=== PATIENT | male | born 1985 | race Caucasian/White ===

== ENCOUNTER 2017-10-17 16:38 | Emergency (ER) | payer BC ==
[2017-10-17] MEDS ORDERED: Sodium Chloride 0.9% 10 ML Syringe FLUSH PRN (17:42)
[2017-10-17] MEDS ORDERED: Sodium Chloride 0.9% 1,000 ML IV STA (17:42)
[2017-10-17] MEDS ORDERED: Ondansetron 4 MG/2 ML SDV IVPUSH ONE (17:42)
[2017-10-17] MEDS ORDERED: Sodium Chloride 0.9% 1,000 ML IV SCH (19:45)
--- NOTE | 2017-10-17 19:56 | EDM.PDOC ---
ED HPI GENERAL MEDICAL PROBLEM - General Chief Complaint: General Stated Complaint: FLU LIKE SYMPTOMS Time Seen by Provider: 10/17/17 17:28 Source of Information: Reports: Patient History Limitations: Reports: No Limitations - History of Present Illness INITIAL COMMENTS - FREE TEXT/NARRATIVE: The patient presents with body aches and generalized weakness. He has some nausea and his stomach is upset. He does not think he had a fever but maybe some chills. He is able to eat. He has no chest pain, sore throat, ear pain, cough, abdominal pain or dysuria. He has no medical problems. This has been going on for 5 days. Onset: Gradual Duration: Day(s): (5) Location: Reports: Generalized Quality: Reports: Ache Severity: Moderate Improves with: Reports: None Worsens with: Reports: None Associated Symptoms: Reports: Fever/Chills, Nausea/Vomiting. Denies: Chest Pain , Cough, Headaches, Shortness of Breath Generalized Pain Score (Numeric/FACES): 0 - Related Data Allergies Allergy/AdvReac Type Severity Reaction Status Date / Time No Known Allergies Allergy Verified 10/17/17 16:59 Home Meds: Home Meds Ondansetron [Zofran ODT] 4 mg PO Q6H PRN #20 tab.dis 10/17/17 [Rx] Past Medical History - Past Surgical History HEENT Surgical History: Reports: Eye Surgery GI Surgical History: Reports: Appendectomy Social & Family History - Tobacco Use Smoking Status *Q: Never Smoker - Caffeine Use Caffeine Use: Reports: Coffee - Recreational Drug Use Recreational Drug Use: No ED ROS GENERAL - Review of Systems Review Of Systems: See Below Constitutional: Reports: Chills, Malaise, Weakness, Fatigue. Denies: Fever HEENT: Reports: No Symptoms Respiratory: Reports: No Symptoms Cardiovascular: Reports: No Symptoms Endocrine: Reports: No Symptoms GI/Abdominal: Reports: Diarrhea, Nausea. Denies: Abdominal Pain, Vomiting : Reports: No Symptoms Musculoskeletal: Reports: No Symptoms ED EXAM, GENERAL - Physical Exam Exam: See Below Exam Limited By: No Limitations General Appearance: Alert, No Apparent Distress Ears: Normal External Exam Nose: Normal Inspection Head: Atraumatic, Normocephalic Neck: Normal Inspection Respiratory/Chest: No Respiratory Distress, Lungs Clear, Normal Breath Sounds Cardiovascular: Regular Rate, Rhythm, No Edema, No Murmur GI/Abdominal: Soft, Non-Tender, No Organomegaly, No Mass Back Exam: Normal Inspection Extremities: Normal Inspection Neurological: Alert, Oriented, No Motor/Sensory Deficits Course - Vital Signs Last Recorded V/S: Last Vital Signs Temp 98.5 F 10/17/17 16:59 Pulse 87 10/17/17 16:59 Resp 16 10/17/17 16:59 BP 132/73 10/17/17 16:59 Pulse Ox 100 10/17/17 16:59 - Orders/Labs/Meds Orders: Active Orders 24 hr Category Date Time Status Peripheral IV Care [RC] . DIRECTED Care 10/17/17 17:43 Active Abdomen Ltd [US] Stat Exams 10/17/17 19:40 Taken Sodium Chloride 0.9% [Normal Saline] 1,000 ml Med 10/17/17 19:45 Active IV ASDIRECTED Sodium Chloride 0.9% [Saline Flush] Med 10/17/17 17:42 Active 10 ml FLUSH ASDIRECTED PRN ED Antiemetic Medication Reflex [OM.PC] Stat Oth 10/17/17 17:43 Ordered Peripheral IV Insertion Adult [OM.PC] Stat Oth 10/17/17 17:42 Ordered Medication Orders Sodium Chloride (Normal Saline) 1,000 mls @ 150 mls/hr IV ASDIRECTED FRANSISCO Last Admin: 10/17/17 19:49 Dose: 150 mls/hr Sodium Chloride (Saline Flush) 10 ml FLUSH ASDIRECTED PRN PRN Reason: Keep Vein Open Last Admin: 10/17/17 18:26 Dose: 10 ml Labs: Laboratory Tests 10/17/17 10/17/17 10/17/17 Range/Units 18:15 18:15 18:15 WBC 5.92 (4.23-9.07) K/mm3 RBC 5.17 (4.63-6.08) M/mm3 Hgb 16.1 (13.7-17.5) gm/L Hct 46.2 (40.1-51.0) % MCV 89.4 (79.0-92.2) fl MCH 31.1 (25.7-32.2) pg MCHC 34.8 (32.2-35.5) g/dl RDW Std Deviation 41.5 (35.1-43.9) fL Plt Count 169 (163-337) K/mm3 MPV 9.1 L (9.4-12.3) fl Neut % (Auto) 59.1 (34.0-67.9) % Lymph % (Auto) 20.1 L (21.8-53.1) % [place] % (Auto) 17.9 H (5.3-12.2) % Eos % (Auto) 2.4 (0.8-7.0) Baso % (Auto) 0.3 (0.1-1.2) % Neut # (Auto) 3.50 (1.78-5.38) K/mm3 Lymph # (Auto) 1.19 L (1.32-3.57) K/mm3 [place] # (Auto) 1.06 H (0.30-0.82) K/mm3 Eos # (Auto) 0.14 (0.04-0.54) K/mm3 Baso # (Auto) 0.02 (0.01-0.08) K/mm3 Manual Slide Review Normal smear Sodium 138 (136-145) mEq/L Potassium 3.9 (3.5-5.1) mEq/L Chloride 104 (98-107) mEq/L Carbon Dioxide 30 (21-32) mEq/L Anion Gap 7.9 (5-15) BUN 11 (7-18) mg/dL Creatinine 1.0 (0.7-1.3) mg/dL Est Cr Clr Drug Dosing 111.90 mL/min Estimated GFR (MDRD) > 60 (>60) mL/min BUN/Creatinine Ratio 11.0 L (14-18) Glucose 87 (74-106) mg/dL Calcium 9.0 (8.5-10.1) mg/dL Total Bilirubin 0.9 (0.2-1.0) mg/dL AST 36 (15-37) U/L ALT 61 (16-63) U/L Alkaline Phosphatase 65 (46-116) U/L Creatine Kinase 52 (39-308) U/L Total Protein 7.5 (6.4-8.2) g/dl Albumin 3.5 (3.4-5.0) g/dl Globulin 4.0 gm/dL Albumin/Globulin Ratio 0.9 L (1-2) Lipase 494 H (73-393) U/L Monoscreen Negative (NEGATIVE) Meds: Medications Generic Name Dose Route Start Last Admin Trade Name Birgit PRN Reason Stop Dose Admin Sodium Chloride 1,000 mls @ 150 mls/hr 10/17/17 19:45 10/17/17 19:49 Normal Saline IV 150 mls/hr ASDIRECTED FRANSISCO Administration Sodium Chloride 10 ml 10/17/17 17:42 10/17/17 18:26 Saline Flush FLUSH 10 ml ASDIRECTED PRN Administration Keep Vein Open Discontinued Medications Generic Name Dose Route Start Last Admin Trade Name Freq PRN Reason Stop Dose Admin Sodium Chloride 1,000 mls @ 1,000 mls/hr 10/17/17 17:42 10/17/17 18:25 Normal Saline IV 10/17/17 18:41 1,000 mls/hr .BOLUS STA Administration Ondansetron HCl 4 mg 10/17/17 17:42 10/17/17 18:25 Zofran IVPUSH 10/17/17 17:43 4 mg ONETIME ONE Administration - Re-Assessments/Exams Free Text/Narrative Re-Assessment/Exam: 10/17/17 19:53 I ordered an IV NS 1L bolus, zofran 4mg IV and labs. His CBC looks good. His CMP looks good. His influenza and mono were negative. His lipase was elevated at 494. He says he feels better. When I examined him again he had pain upon palpation to the RUQ. I have ordered an US of his gallbladder. He says he drinks socially and last had a drink Sunday night. It was just one shot. 10/17/17 21:08 The US showed some sludge in his gallbladder. There was no stones and the ducts looked fine. He did have some pain with the US. He has pancreatitis. I will discharge him on some zofran. He may need to see a general surgeon if he has more trouble with his gallbladder. Departure - Departure Time of Disposition: 21:10 Disposition: Home, Self-Care 01 Condition: Good Clinical Impression: Biliary colic, Gallbladder sludge Pancreatitis Qualifiers: Chronicity: acute Pancreatitis type: other Acute pancreatitis complication: no infection or necrosis Qualified Code(s): K85.80 - Other acute pancreatitis without necrosis or infection - Discharge Information Prescriptions: Ondansetron [Zofran ODT] 4 mg PO Q6H PRN #20 tab.dis PRN Reason: Nausea/Vomiting Referrals: PCP,Not In Area [Primary Care Provider] - Latoya Barcenas PA [Physician [employer]] - 1 Week Forms: ED Department Discharge Additional Instructions: Take the zofran every 6 hours as needed for nausea and vomiting. Drink plenty of fluids. Start of with clear liquids for a day and advance your diet as tolerated. Please return if you are worse such as more pain, nausea and vomiting. Follow up with Latoya Barcenas here or your doctor back in [place]. Avoid fried fatty food. That may make your gallbladder hurt. If it becomes more of a problem. Follow up with a general surgeon back home to see about getting your gallbladder out. - My Orders Last 24 Hours: My Active Orders 10/17/17 17:42 Sodium Chloride 0.9% [Saline Flush] 10 ml FLUSH ASDIRECTED PRN Peripheral IV Insertion Adult [OM.PC] Stat 10/17/17 17:43 Peripheral IV Care [RC] . DIRECTED ED Antiemetic Medication Reflex [OM.PC] Stat 10/17/17 19:40 Abdomen Ltd [US] Stat 10/17/17 19:45 Sodium Chloride 0.9% [Normal Saline] 1,000 ml IV ASDIRECTED - Assessment/Plan Last 24 Hours: My Active Orders 10/17/17 17:42 Sodium Chloride 0.9% [Saline Flush] 10 ml FLUSH ASDIRECTED PRN Peripheral IV Insertion Adult [OM.PC] Stat 10/17/17 17:43 Peripheral IV Care [RC] . DIRECTED ED Antiemetic Medication Reflex [OM.PC] Stat 10/17/17 19:40 Abdomen Ltd [US] Stat 10/17/17 19:45 Sodium Chloride 0.9% [Normal Saline] 1,000 ml IV ASDIRECTED
--- NOTE | 2017-10-17 21:14 | US ---
Limited abdominal ultrasound: Multiple real-time images of the upper right abdomen were obtained. Comparison: No previous abdominal imaging. Findings: Liver shows no focal abnormality. Sludge is identified within the gallbladder. No shadowing gallstones are seen. No gallbladder wall thickening or biliary duct dilatation is seen. Right kidney shows no hydronephrosis or mass and has a length of 10.9 cm. Visualised portions of the pancreas are unremarkable. Impression: 1. Sludge within the gallbladder. Gallbladder shows no shadowing gallstones or gallbladder wall thickening. No biliary duct dilatation is seen. 2. Other portions of the right upper quadrant abdominal ultrasound are unremarkable. Diagnostic code #2
== END 2017-10-17 21:24 | disposition home or self-care (01) ==
LOC: JD.ED 16:38
DX: K80.50 Calculus of bile duct without cholangitis or cholecystitis without obstruction (principal); K83.9 Disease of biliary tract, unspecified; K85.80 Other acute pancreatitis without necrosis or infection
CPT/HCPCS: 36415; 76705; 80053; 82550; 83690; 85025; 86308; 87804; 96361; 96374; 99284; J2405; J7040; J7050

== ENCOUNTER 2017-11-04 22:43 | Observation (INO) | payer BC ==
[2017-11-04] MEDS ORDERED: Ondansetron 4 MG/2 ML SDV IVPUSH ONE (23:04)
[2017-11-04] MEDS ORDERED: Sodium Chloride 0.9% 1,000 ML IV STA (23:04)
[2017-11-04] MEDS ORDERED: Sodium Chloride 0.9% 10 ML Syringe FLUSH PRN (23:04)
[2017-11-04] MEDS ORDERED: HYDROmorphone 1 MG/ML Syringe IVPUSH ONE (23:05)
[2017-11-05] MEDS ORDERED: HYDROmorphone 0.5 MG/0.5 ML Syringe IVPUSH ONE (00:43)
--- NOTE | 2017-11-05 01:58 | EDM.PDOC ---
ED HPI GENERAL MEDICAL PROBLEM - General Chief Complaint: Abdominal Pain Stated Complaint: right side pain Time Seen by Provider: 11/04/17 22:50 Source of Information: Reports: Patient History Limitations: Reports: No Limitations - History of Present Illness INITIAL COMMENTS - FREE TEXT/NARRATIVE: The patient presents with RUQ abdominal pain. He was seen here on the 17 of October and found to have slug in his gallbladder. He went back home and saw his doctor and he was going to set him up with a surgeon when he got back home again. [place] came [place] work [place] and multiple times he has had RUQ abdominal pain. He had a severe on yesterday morning at [facility]. He came back here tonight and had some tuna and crackers and it flared up again. He has nausea but no vomiting. He has no fever or chills. He denies chest pain or shortness or breath. Onset: Sudden Duration: Hour(s): Location: Reports: Abdomen (RUQ) Quality: Reports: Sharp Severity: Moderate Improves with: Reports: None Worsens with: Reports: None Associated Symptoms: Reports: Nausea/Vomiting. Denies: Confusion, Chest Pain, Cough, Fever/Chills, Shortness of Breath Right Upper Abdomen Pain Score (Numeric/FACES): 8 - Related Data Allergies Allergy/AdvReac Type Severity Reaction Status Date / Time No Known Allergies Allergy Verified 10/17/17 16:59 Home Meds: Home Meds traMADol [Ultram] 50 mg PO Q6H PRN 11/04/17 [History] Past Medical History - Past Surgical History HEENT Surgical History: Reports: Eye Surgery GI Surgical History: Reports: Appendectomy Social & Family History - Tobacco Use Smoking Status *Q: Never Smoker - Caffeine Use Caffeine Use: Reports: Coffee - Recreational Drug Use Recreational Drug Use: No ED ROS GENERAL - Review of Systems Review Of Systems: See Below Constitutional: Reports: No Symptoms HEENT: Reports: No Symptoms Respiratory: Reports: No Symptoms Cardiovascular: Reports: No Symptoms Endocrine: Reports: No Symptoms GI/Abdominal: Reports: Abdominal Pain, Nausea. Denies: Vomiting : Reports: No Symptoms Musculoskeletal: Reports: No Symptoms ED EXAM, GI/ABD - Physical Exam Exam: See Below Exam Limited By: No Limitations General Appearance: Alert, No Apparent Distress Ears: Normal External Exam Nose: Normal Inspection Head: Atraumatic, Normocephalic Neck: Normal Inspection Respiratory/Chest: No Respiratory Distress, Lungs Clear, Normal Breath Sounds Cardiovascular: Regular Rate, Rhythm, No Edema, No Murmur GI/Abdominal Exam: Soft, No Organomegaly, No Mass, Tender (Moderate pain upon palpation to the RUQ) Course - Vital Signs Last Recorded V/S: Last Vital Signs Temp 97.0 F 11/04/17 22:47 Pulse 70 11/04/17 22:47 Resp 20 11/04/17 22:47 BP 126/90 11/04/17 22:47 Pulse Ox 98 11/04/17 22:47 - Orders/Labs/Meds Orders: Active Orders 24 hr Category Date Time Status Peripheral IV Care [RC] Q2HR Care 11/04/17 23:04 Active Sodium Chloride 0.9% [Saline Flush] Med 11/04/17 23:04 Active 10 ml FLUSH ASDIRECTED PRN ED Antiemetic Medication Reflex [OM.PC] Stat Oth 11/04/17 23:04 Ordered Peripheral IV Insertion Adult [OM.PC] Stat Oth 11/04/17 23:04 Ordered Medication Orders Sodium Chloride (Saline Flush) 10 ml FLUSH ASDIRECTED PRN PRN Reason: Keep Vein Open Last Admin: 11/04/17 23:30 Dose: 10 ml Labs: Laboratory Tests 11/04/17 11/04/17 Range/Units 23:25 23:25 WBC 7.75 (4.23-9.07) K/mm3 RBC 4.22 L (4.63-6.08) M/mm3 Hgb 13.0 L (13.7-17.5) gm/L Hct 38.2 L (40.1-51.0) % MCV 90.5 (79.0-92.2) fl MCH 30.8 (25.7-32.2) pg MCHC 34.0 (32.2-35.5) g/dl RDW Std Deviation 40.6 (35.1-43.9) fL Plt Count 183 (163-337) K/mm3 MPV 9.4 (9.4-12.3) fl Neut % (Auto) 57.1 (34.0-67.9) % Lymph % (Auto) 29.3 (21.8-53.1) % [place] % (Auto) 9.7 (5.3-12.2) % Eos % (Auto) 3.5 (0.8-7.0) Baso % (Auto) 0.3 (0.1-1.2) % Neut # (Auto) 4.43 (1.78-5.38) K/mm3 Lymph # (Auto) 2.27 (1.32-3.57) K/mm3 [place] # (Auto) 0.75 (0.30-0.82) K/mm3 Eos # (Auto) 0.27 (0.04-0.54) K/mm3 Baso # (Auto) 0.02 (0.01-0.08) K/mm3 Sodium 141 (136-145) mEq/L Potassium 4.0 (3.5-5.1) mEq/L Chloride 105 (98-107) mEq/L Carbon Dioxide 28 (21-32) mEq/L Anion Gap 12.0 (5-15) BUN 23 H (7-18) mg/dL Creatinine 0.9 (0.7-1.3) mg/dL Est Cr Clr Drug Dosing 124.34 mL/min Estimated GFR (MDRD) > 60 (>60) mL/min BUN/Creatinine Ratio 25.6 H (14-18) Glucose 94 (74-106) mg/dL Calcium 8.8 (8.5-10.1) mg/dL Total Bilirubin 0.5 (0.2-1.0) mg/dL AST 26 (15-37) U/L ALT 33 (16-63) U/L Alkaline Phosphatase 68 (46-116) U/L Total Protein 7.1 (6.4-8.2) g/dl Albumin 3.6 (3.4-5.0) g/dl Globulin 3.5 gm/dL Albumin/Globulin Ratio 1.0 (1-2) Lipase 142 (73-393) U/L Meds: Medications Generic Name Dose Route Start Last Admin Trade Name Freq PRN Reason Stop Dose Admin Sodium Chloride 10 ml 11/04/17 23:04 11/04/17 23:30 Saline Flush FLUSH 10 ml ASDIRECTED PRN Administration Keep Vein Open Discontinued Medications Generic Name Dose Route Start Last Admin Trade Name Freq PRN Reason Stop Dose Admin Hydromorphone HCl 1 mg 11/04/17 23:05 11/04/17 23:31 Dilaudid IVPUSH 11/04/17 23:06 1 mg ONETIME ONE Administration Hydromorphone HCl 0.5 mg 11/05/17 00:43 11/05/17 00:52 Dilaudid IVPUSH 11/05/17 00:44 0.5 mg ONETIME ONE Administration Sodium Chloride 1,000 mls @ 1,000 mls/hr 11/04/17 23:04 11/04/17 23:29 Normal Saline IV 11/05/17 00:03 1,000 mls/hr .BOLUS STA Administration Ondansetron HCl 4 mg 11/04/17 23:04 11/04/17 23:30 Zofran IVPUSH 11/04/17 23:05 4 mg ONETIME ONE Administration - Re-Assessments/Exams Free Text/Narrative Re-Assessment/Exam: 11/05/17 01:57 I ordered an IV NS 1 L bolus, zofran 4mg IV, and dilaudid 1mg IV. I also ordered a CMP and CBC and they both look good. I feel he needs to be admitted. I called Dr Burdick and he will admit him to obs. I did bridging orders. 11/05/17 01:58 He had more pain so I ordered dilaudid 0.5mg IV. Departure - Departure Time of Disposition: 02:00 Disposition: Home, Self-Care 01 Condition: Good Clinical Impression: Biliary colic, Gallbladder sludge - Discharge Information - My Orders Last 24 Hours: My Active Orders 11/04/17 23:04 Peripheral IV Care [RC] Q2HR Sodium Chloride 0.9% [Saline Flush] 10 ml FLUSH ASDIRECTED PRN ED Antiemetic Medication Reflex [OM.PC] Stat Peripheral IV Insertion Adult [OM.PC] Stat - Assessment/Plan Last 24 Hours: My Active Orders 11/04/17 23:04 Peripheral IV Care [RC] Q2HR Sodium Chloride 0.9% [Saline Flush] 10 ml FLUSH ASDIRECTED PRN ED Antiemetic Medication Reflex [OM.PC] Stat Peripheral IV Insertion Adult [OM.PC] Stat
[2017-11-05] MEDS ORDERED: Ondansetron 4 MG/2 ML SDV IVPUSH PRN (02:12)
[2017-11-05] MEDS: HYDROmorphone 0.5 MG/0.5 ML Syringe IVPUSH PRN ×5 (02:25→19:25)
[2017-11-05] MEDS: Sodium Chloride 0.9% 1,000 ML IV SCH ×2 (02:26→20:34)
[2017-11-05] MEDS ORDERED: Piperacillin/Tazobactam 3.375 GM in Sodium Chloride 0.9% 100 ML IV STA (09:37)
[2017-11-05] MEDS ORDERED: Piperacillin/Tazobactam 4.5 GM in Sodium Chloride 0.9% 100 ML IV ONE (09:45)
[2017-11-05] MEDS ORDERED: FLU Vacc QS 2017-18 (6mos UP)/PF 60 MCG/0.5 ML Syringe IM ONE (10:00)
--- NOTE | 2017-11-05 10:15 | PCM.PREANE ---
Preanesthetic Assessment - Procedure Proposed Procedure: Laparoscopic cholecystectomy - Anesthesia/Transfusion/Family Hx Anesthesia History: Prior Anesthesia Without Reaction Type of Anesthesia Reaction: Unknown Family History of Anesthesia Reaction: No Transfusion History: Prior Transfusion Reaction Intubation History: Unknown - Review of Systems General: No Symptoms Pulmonary: No Symptoms Cardiovascular: No Symptoms Gastrointestinal: No Symptoms Neurological: No Symptoms Other: Reports: None - Physical Assessment NPO Status Date: 11/04/17 NPO Status Time: 20:00 Pulse: 53 O2 Sat by Pulse Oximetry: 100 Respiratory Rate: 17 Blood Pressure: 122/73 Temperature: 36.4 C Vital Signs: Last Vital Signs Temp 36.4 C 11/05/17 08:13 Pulse 53 L 11/05/17 08:13 Resp 17 11/05/17 08:13 BP 122/73 11/05/17 08:13 Pulse Ox 100 11/05/17 08:13 Height: 1.8 m Weight: 95.028 kg ASA Class: 1E Mental Status: Alert & Oriented x3 Airway Class: Mallampati = 2 Dentition: Reports: Normal Dentition Thyro-Mental Finger Breadths: 3 Mouth Opening Finger Breadths: 3 ROM/Head Extension: Full Lungs: Clear to Auscultation, Normal Respiratory Effort Cardiovascular: Regular Rate, Regular Rhythm - Lab Values: Laboratory Last Values WBC 7.75 K/mm3 (4.23-9.07) 11/04/17 23:25 RBC 4.22 M/mm3 (4.63-6.08) L 11/04/17 23:25 Hgb 13.0 gm/L (13.7-17.5) L 11/04/17 23:25 Hct 38.2 % (40.1-51.0) L 11/04/17 23:25 MCV 90.5 fl (79.0-92.2) 11/04/17 23:25 MCH 30.8 pg (25.7-32.2) 11/04/17 23:25 MCHC 34.0 g/dl (32.2-35.5) 11/04/17 23:25 RDW Std Deviation 40.6 fL (35.1-43.9) 11/04/17 23:25 Plt Count 183 K/mm3 (163-337) 11/04/17 23:25 MPV 9.4 fl (9.4-12.3) 11/04/17 23:25 Neut % (Auto) 57.1 % (34.0-67.9) 11/04/17 23:25 Lymph % (Auto) 29.3 % (21.8-53.1) 11/04/17 23:25 [place] % (Auto) 9.7 % (5.3-12.2) 11/04/17 23:25 Eos % (Auto) 3.5 (0.8-7.0) 11/04/17 23:25 Baso % (Auto) 0.3 % (0.1-1.2) 11/04/17 23:25 Neut # (Auto) 4.43 K/mm3 (1.78-5.38) 11/04/17 23:25 Lymph # (Auto) 2.27 K/mm3 (1.32-3.57) 11/04/17 23:25 [place] # (Auto) 0.75 K/mm3 (0.30-0.82) 11/04/17 23:25 Eos # (Auto) 0.27 K/mm3 (0.04-0.54) 11/04/17 23:25 Baso # (Auto) 0.02 K/mm3 (0.01-0.08) 11/04/17 23:25 Sodium 141 mEq/L (136-145) 11/04/17 23:25 Potassium 4.0 mEq/L (3.5-5.1) 11/04/17 23:25 Chloride 105 mEq/L (98-107) 11/04/17 23:25 Carbon Dioxide 28 mEq/L (21-32) 11/04/17 23:25 Anion Gap 12.0 (5-15) 11/04/17 23:25 BUN 23 mg/dL (7-18) H 11/04/17 23:25 Creatinine 0.9 mg/dL (0.7-1.3) 11/04/17 23:25 Est Cr Clr Drug Dosing 124.34 mL/min 11/04/17 23:25 Estimated GFR (MDRD) > 60 mL/min (>60) 11/04/17 23:25 BUN/Creatinine Ratio 25.6 (14-18) H 11/04/17 23:25 Glucose 94 mg/dL (74-106) 11/04/17 23:25 Calcium 8.8 mg/dL (8.5-10.1) 11/04/17 23:25 Total Bilirubin 0.5 mg/dL (0.2-1.0) 11/04/17 23:25 AST 26 U/L (15-37) 11/04/17 23:25 ALT 33 U/L (16-63) 11/04/17 23:25 Alkaline Phosphatase 68 U/L (46-116) 11/04/17 23:25 Total Protein 7.1 g/dl (6.4-8.2) 11/04/17 23:25 Albumin 3.6 g/dl (3.4-5.0) 11/04/17 23:25 Globulin 3.5 gm/dL 11/04/17 23:25 Albumin/Globulin Ratio 1.0 (1-2) 11/04/17 23:25 Lipase 142 U/L (73-393) 11/04/17 23:25 - Allergies Allergies/Adverse Reactions: Allergies Allergy/AdvReac Type Severity Reaction Status Date / Time No Known Allergies Allergy Verified 10/17/17 16:59 - Blood Blood Available: No Product(s) Available: None - Anesthesia Plan Pre-Op Medication Ordered: None - Acknowledgements Anesthesia Type Planned: General Anesthesia Pt an Appropriate Candidate for the Planned Anesthesia: Yes Alternatives and Risks of Anesthesia Discussed w Pt/Guardian: Yes Pt/Guardian Understands and Agrees with Anesthesia Plan: Yes PreAnesthesia Questionnaire Musculoskeletal History: Reports: Arthritis, Other (See Below) Other Musculoskeletal History: Hx: Stress fractures in both hips Neurological History: Reports: None - Infectious Disease History Infectious Disease History: Reports: Influenza - Past Surgical History HEENT Surgical History: Reports: Eye Surgery GI Surgical History: Reports: Appendectomy - SUBSTANCE USE Smoking Status *Q: Former Smoker Tobacco Use Within Last Twelve Months: Cigarettes Recreational Drug Use History: No - HOME MEDS Home Medications: Home Meds traMADol [Ultram] 50 mg PO Q6H PRN 11/04/17 [History] Multivitamin [Men's Multi-Vitamin] 1 tab PO DAILY 11/05/17 [History] - CURRENT (IN HOUSE) MEDS Current Meds: Current Medications Hydromorphone HCl (Dilaudid) 0.5 mg IVPUSH Q1H PRN PRN Reason: Pain Last Admin: 11/05/17 08:57 Dose: 0.5 mg Sodium Chloride (Normal Saline) 1,000 mls @ 100 mls/hr IV ASDIRECTED FRANSISCO Last Admin: 11/05/17 02:26 Dose: 100 mls/hr Piperacillin Sod/Tazobactam (Sod 4.5 gm/ Sodium Chloride) 100 mls @ 200 mls/hr IV ONETIME ONE Stop: 11/05/17 10:14 Last Admin: 11/05/17 09:52 Dose: 200 mls/hr Ondansetron HCl (Zofran) 4 mg IVPUSH Q6HR PRN PRN Reason: Nausea Sodium Chloride (Saline Flush) 10 ml FLUSH ASDIRECTED PRN PRN Reason: Keep Vein Open Last Admin: 11/04/17 23:30 Dose: 10 ml Discontinued Medications Dexamethasone (Dexamethasone) Confirm Administered Dose 20 mg .ROUTE .STK-MED ONE Stop: 11/05/17 10:22 Fentanyl (Sublimaze) Confirm Administered Dose 250 mcg .ROUTE .STK-MED ONE Stop: 11/05/17 10:19 Hydromorphone HCl (Dilaudid) 1 mg IVPUSH ONETIME ONE Stop: 11/04/17 23:06 Last Admin: 11/04/17 23:31 Dose: 1 mg Hydromorphone HCl (Dilaudid) 0.5 mg IVPUSH ONETIME ONE Stop: 11/05/17 00:44 Last Admin: 11/05/17 00:52 Dose: 0.5 mg Sodium Chloride (Normal Saline) 1,000 mls @ 1,000 mls/hr IV .BOLUS STA Stop: 11/05/17 00:03 Last Admin: 11/04/17 23:29 Dose: 1,000 mls/hr Piperacillin Sod/Tazobactam (Sod 3.375 gm/ Sodium Chloride) 100 mls @ 100 mls/ hr IV NOW STA Stop: 11/05/17 10:36 Lidocaine HCl (Xylocaine-Mpf 1%) Confirm Administered Dose 4 mls @ as directed .ROUTE .STK-MED ONE Stop: 11/05/17 10:22 Influenza Virus Vaccine (Pharmacy To Dose - Influenza Vaccine) 1 each IM ONETIME ONE Stop: 11/05/17 02:33 Influenza Virus Vaccine (Flulaval Quad 2817-9241) 60 mcg IM .ONCE ONE Stop: 11/05/17 10:01 Midazolam HCl (Versed 1 Mg/Ml) Confirm Administered Dose 2 mg .ROUTE .STK-MED ONE Stop: 11/05/17 10:19 Ondansetron HCl (Zofran) 4 mg IVPUSH ONETIME ONE Stop: 11/04/17 23:05 Last Admin: 11/04/17 23:30 Dose: 4 mg Ondansetron HCl (Zofran) Confirm Administered Dose 4 mg .ROUTE .STK-MED ONE Stop: 11/05/17 10:22 Propofol (Diprivan 20 Ml) Confirm Administered Dose 200 mg .ROUTE .STK-MED ONE Stop: 11/05/17 10:19 Rocuronium [place] (Zemuron) Confirm Administered Dose 50 mg .ROUTE .STK-MED ONE Stop: 11/05/17 10:22
[2017-11-05] MEDS ORDERED: Midazolam 1 MG/ML 2 ML SDV ONE (10:18)
[2017-11-05] MEDS ORDERED: Propofol 200 MG/20 ML SDV ONE (10:18)
[2017-11-05] MEDS ORDERED: fentaNYL 250 MCG/5 ML SDV ONE (10:18)
[2017-11-05] MEDS ORDERED: Dexamethasone 4 MG/ML 5 ML MDV ONE (10:21)
[2017-11-05] MEDS ORDERED: Lidocaine 1% 4 ML ONE (10:21)
[2017-11-05] MEDS ORDERED: Rocuronium 50 MG/5 ML Vial ONE ×2 (10:21→11:50)
[2017-11-05] MEDS ORDERED: Ondansetron 4 MG/2 ML SDV ONE (10:21)
[2017-11-05] MEDS ORDERED: Lidocaine 1% 50 ML MDV ONE (10:27)
[2017-11-05] MEDS ORDERED: Bupivacaine 0.5%/EPINEPHrine 1:200,000 50 ML MDV ONE (10:28)
[2017-11-05] MEDS ORDERED: Lactated Ringers 1,000 ML ONE ×3 (10:44→13:41)
--- NOTE | 2017-11-05 11:15 | HP ---
DATE OF ADMISSION: 11/05/2017 CHIEF COMPLAINT: Abdominal pain, 12 hours duration. HISTORY OF PRESENT ILLNESS: This is a 32-year-old gentleman, who works in the [employer] section of the [employer] here, who was admitted last night with a history of intermittent right upper quadrant pain, which he has had for months. Each attack lasting longer and more severe. He was seen here on October 17 at one of the local other hospitals at which time an ultrasound was performed demonstrating stones in the gallbladder and he at that time had an elevated amylase, he cannot remember. He does not remember being jaundiced. He has had intermittent episodes probably about 5 or 6 of them in the past week and this last one came on after eating a Tuna fish sandwich which was packed in water and occurred within approximately 15 to 30 minutes after meal. The pain has persisted to present, throughout the night. Today, he is still having pain approximately around 8 requiring Dilaudid intravenously for it. There is no scleral icterus. His studies last evening were normal of normal amylase, normal liver function tests, and a normal bilirubin 0.5. Impression at this point is acute cholecystitis because of this persistent pain approximately 12 hours duration without relenting. The patient has been offered a laparoscopic cholecystectomy and with the possibility of an open cholecystectomy in case if there are problems with the laparoscopic cholecystectomy due to the adhesions, etc. from previous attacks. He understands this and accepts it. ALLERGIES: He has no known allergies. CURRENT MEDICATIONS: He takes multivitamins and tramadol. FAMILY HISTORY: Unremarkable, exception of his 2 blood relatives, who have had previous cholecystectomies. SOCIAL HISTORY: The patient is not . He does have a girlfriend that he is serious about. REVIEW OF SYSTEMS: Otherwise unremarkable and noncontributory. PHYSICAL EXAMINATION: GENERAL: Reveals a 32-year-old gentleman in good physical condition. Weight 208 pounds, height 5 feet 11 inches. EYES, EARS, NOSE, AND THROAT: Unremarkable. There is no scleral icterus. Oropharynx is clear. NECK: Supple. Trachea midline. No masses. No bruits. Full range of motion. CHEST: Clear to auscultation throughout. HEART: Rhythm is regular with no murmurs are heard. His pulse rate is in the 60s. ABDOMEN: Soft with bowel sounds exception of marked guarding in the right upper quadrant and a positive Morelos's sign. There is also some right flank tenderness. No other abnormalities are noted. GENITALIA: Unremarkable. RECTAL: Not performed. EXTREMITIES: Reveal full peripheral pulses. No edema. No varicosities. NEUROLOGIC: Intact to gross exam. ASSESSMENT: At this point is acute cholecystitis versus transient biliary colic, which I doubt since this has been steady for now for the last 12 hours. Presumably, he does have early acute cholecystitis with an obstructed cystic duct. He understands that he will be taken to surgery, where laparoscopic cholecystectomy will be performed and attempted and if necessary, may need to be changed to an open cholecystectomy and judgment of the surgeon would be safer for the patient. MMODAL /[id number] JESSICA
[2017-11-05] MEDS ORDERED: HYDROmorphone 1 MG/ML Syringe ONE (11:30)
[2017-11-05] MEDS ORDERED: Neostigmine Methylsulfate 1 MG/ML 5 ML Syringe ONE (13:43)
[2017-11-05] MEDS ORDERED: Ketorolac 30 MG/ML SDV ONE (13:51)
[2017-11-05] MEDS ORDERED: HYDROmorphone 0.5 MG/0.5 ML Syringe IVPUSH PRN (14:01)
[2017-11-05] MEDS ORDERED: Promethazine 6.25 MG in Sodium Chloride 0.9% 50 ML IV PRN (14:01)
[2017-11-05] MEDS ORDERED: Meperidine PF 50 MG/ML Syringe IVPUSH PRN (14:01)
[2017-11-05] MEDS ORDERED: fentaNYL 100 MCG/2 ML SDV IVPUSH PRN (14:01)
[2017-11-05] MEDS ORDERED: diphenhydrAMINE 50 MG/ML SDV IVPUSH PRN (14:01)
--- NOTE | 2017-11-05 14:01 | PCM.POSTAN ---
POST ANESTHESIA ASSESSMENT - MENTAL STATUS Mental Status: Alert, Oriented - VITAL SIGNS Pulse Rate: 89 SaO2: 94 Resp Rate: 14 Blood Pressure: 116/55 Temperature: 37.2 C - RESPIRATORY Respiratory Status: Respiratory Rate WNL, Airway Patent, O2 Saturation Stable, Supplemental Oxygen - CARDIOVASCULAR CV Status: Pulse Rate WNL, Blood Pressure Stable - GASTROINTESTINAL GI Status: No Symptoms - PAIN Pain Score: 0 - POST OP HYDRATION Hydration Status: Adequate & Stable
[2017-11-05] MEDS ORDERED: Piperacillin/Tazobactam 3.375 GM in Sodium Chloride 0.9% 100 ML IV SCH (20:00)
[2017-11-05] MEDS: Piperacillin/Tazobactam 4.5 GM in Sodium Chloride 0.9% 100 ML IV SCH (20:30)
[2017-11-05] MEDS: Ketorolac 30 MG/ML SDV IVPUSH SCH (20:31)
[2017-11-06] MEDS: Ketorolac 30 MG/ML SDV IVPUSH SCH ×3 (02:45→13:49)
[2017-11-06] MEDS: Piperacillin/Tazobactam 4.5 GM in Sodium Chloride 0.9% 100 ML IV SCH (04:39)
[2017-11-06] MEDS: Sodium Chloride 0.9% 1,000 ML IV SCH (06:58)
--- NOTE | 2017-11-06 17:31 | OR ---
DATE OF OPERATION: 11/05/2017 SURGEON: Vinny Brown PREOPERATIVE DIAGNOSIS: Acute cholecystitis versus severe biliary colic. POSTOPERATIVE DIAGNOSIS: Pending. OPERATION PERFORMED: Laparoscopic cholecystectomy. ANESTHESIA: Iftikhar Montalvo. Operation under excellent general anesthesia with good relaxation. DESCRIPTION OF PROCEDURE: The patient's abdomen was prepped and draped into a sterile field, and the time- out was held in which the patient was identified as was the procedure. The abdomen was prepped with a standard prep containing alcohol. The usual 3 minutes delay was allowed for the evaporation of the alcohol. The patient was draped into a sterile field for a laparoscopic cholecystectomy. Under local anesthesia, all the ports were placed for long-lasting effect using Marcaine and Xylocaine mixed 50:50, 1% and 0.25%. 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 The peritoneum was found to be free of any adhesions locally. The Optiview port was placed, and the trocar was removed, non-cutting. Scope was entered, and visualization of the abdominal cavity demonstrated a large distended gallbladder. Liver appeared to be normal, as well as anterior surface of the stomach. No other abnormalities were noted. A second port was established superiorly 11 mm with the trocar under direct visualization through the scope and the 2 lateral ports, 5 mm each, were placed at suitable positions in the right upper quadrant. The cannulas were left in place. The gallbladder was bound by a fair amount of adhesions which were taken down by grasping the gallbladder at its fundus and lifting it over the liver and by means of sharp and blunt dissection, the adhesions between the omentum and the gallbladder were taken down. The gallbladder was valdez and was not particularly thick walled, but was quite distended. Through the medial 5 mm port, the infundibulum of the gallbladder was grasped, thus exposing the vessels and the cystic duct, "critical view". This was achieved with moderate amount of dissection, all of which was blunt, exposing the cystic artery as well as the cystic duct. This all because of the previous frequent bouts of inflammatory process was difficult, but able to be achieved without injuring any of these structures. The cystic artery was identified, doubly clipped proximally and once distally, and divided. The cystic duct was then able to be dissected free and at its point of entry into the gallbladder, a clip was placed and then 2 clips proximally 3-4 mm below that doubly clipped with the 10 mm Surgiclip. The cystic duct was divided. The gallbladder was peeled back with blunt dissection and cautery, and a second cystic artery branch posteriorly was able to be doubly clipped and divided. The gallbladder was then removed by means of dissection with the cautery hook, and the gallbladder was then free to be removed. A removal sac was then placed through the umbilicus and brought out through the umbilical port in Endobag. The area was inspected and irrigated. There was no active bleeding. There was a small amount of oozing; but because of the difficulty of the anatomy, it was felt that this was not critical and it was observed and essentially ceased. There were no active bleeding in the bed. A small adhesion of the omentum to the umbilicus which was evidently probably part of the contents of the small umbilical hernia was then doubly clipped and divided to prevent a center for any bowel volvulus. This having been achieved, the area was inspected. The ports were all removed under direct inspection to ensure there was no bleeding. The umbilical port was removed last. The fascia above in the umbilicus defect was then closed with a running 0 PDS, and the wounds were closed with clips for the larger ports, and the lateral ports were closed with subcuticular sutures of 3-0 PDS. Steri-Strips were applied along with dry sterile dressings. The patient tolerated the procedure well. Estimated blood loss would be probably 25 mL. Sponge, needle, and instrument count was correct. The patient was transferred to the recovery room in satisfactory condition. ESTIMATED BLOOD LOSS: 50 ml MMODAL [facility][id number] [facility]
--- NOTE | 2017-11-07 07:09 | PN ---
DATE OF SERVICE: 11/06/2017 Rene is doing fine. He is now first day postop laparoscopic cholecystectomy for early cholecystitis versus biliary colic, longstanding. He is doing well. His dressings are dry, except one in the right flank area which has a small dime - sized drop overnight. He is eating now. He is up walking around and feels fairly good. He is kind of anxious to get out of the hospital in order to get things going so that he can perhaps travel to his home in [place], [place], by plane at the end of the week. His I and O are satisfactory. His vital signs are stable. His liver function tests are normal. Bilirubin is 0.6 and the alkaline phosphatase is 51. His CBC is unchanged from yesterday. He will be discharged today, and follow up with a primary care physician or caregiver in the next week in [place]. RIVERA /[id number] JESSICA
--- NOTE | 2017-11-08 00:09 | DISCH ---
ADMISSION DATE: 11/05/2017 DISCHARGE DATE: 11/06/2017 DISCHARGE DIAGNOSIS: Cholelithiasis with biliary colic versus early acute cholecystitis. OPERATION: Laparoscopic cholecystectomy, uneventful. DISCHARGE SUMMARY: The patient was admitted with a 12-hour history of steady right upper quadrant pain. Long history of intermittent bouts of right upper quadrant pain and a familial history for cholelithiasis. The patient underwent an ultrasound which demonstrated cholelithiasis. Liver function tests were normal. No evidence of elevated bilirubin. The patient was taken to the operating room shortly after admission and underwent a laparoscopic cholecystectomy which was fraught with problems basically due to multiple adhesions from his previous attacks and a distended gallbladder. The gallbladder was removed without incident and the patient recovered satisfactorily and kept in overnight for pain control and further studies. He underwent LFTs repeat on the , which were normal, bilirubin of 0.6, and a normal alkaline phosphatase. His wounds were satisfactory with minimal of any bleeding. He was able to be discharged to home. He will be probably able to fly on a plane sometime in the next few days and he is to go to his primary care in [place] where he lives with his family, probably within the next 5 to 7 days and followup will be with his primary caregiver and this will be for staple removal in 10 to 14 days. FINAL DIAGNOSIS: DISCHARGE MEDICATIONS: DIET: ACTIVITY: FOLLOW-UP: CONDITION ON DISCHARGE: RIVERA /[id number]
== END 2017-11-06 16:11 | disposition home or self-care (01) ==
LOC: JD.ED 22:43 → JD.MS 11-05 01:14
PROVIDERS: ADMIT Surgery; ATTEND Surgery
DX: K82.4 Cholesterolosis of gallbladder (principal)
CPT/HCPCS: 36415; 47562; 80053; 82247; 83690; 84075; 85025; 96361; 96374; 96375; 96376; 99285; G0008; J1100; J1170; J1885; J2250; J2405; J2543; J2710; J3010; J7030; J7040; J7050; J7120; 00790; 90686; 96365; 99284; G0378; J2704